=== PATIENT | male | born 1990 | race Caucasian/White ===

== ENCOUNTER 2018-07-26 14:20 | Emergency (ER) | payer OTHER ==
[2018-07-26 15:00] VITALS: BP 115/70; PULSE 76; TEMP 97.6; BMI 19.6
--- NOTE | 2018-07-26 16:47 | PDOC ---
Documentation entered by Aniceto Zavala SCRIBE, acting as scribe for Nacho Cleary MD. Nacho Cleary MD: This documentation has been prepared by the Lucas gutierrez Daniel, SCRIBE, under my direction and personally reviewed by me in its entirety. I confirm that the documentation accurately reflects all work, treatment, procedures, and medical decision making performed by me. History of Present Illness - General Chief Complaint: Rash Stated Complaint: RASH,NECK STIFF History Source: Patient Exam Limitations: No Limitations - History of Present Illness Initial Comments: 07/26/18 16:34 The patient is a 28 year old male with no past medical history here today for evaluation of rash. The patient reports that he suddenly became ill last Saturday (07/19/18) after flying to [facility] with fever, headache, and general malaise. He reports going to an ER in [place] where he received a work up and was discharged. He reports that his fever broke on Saturday (07/21/18) and his headache has subsided mildly but is still present. He notes waking up with a stiff neck and a rash all over his body with the biggest rash on his left calf. 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 Patient denies lightheadedness. Denies fever, chills. Denies chest pain, shortness of breath. Denies nausea, vomiting, diarrhea, abdominal pain. Allergies: NKA Past History - Past Medical History Allergies/Adverse Reactions: Allergies Allergy/AdvReac Type Severity Reaction Status Date / Time No Known Allergies Allergy Verified 07/26/18 14:20 Home Medications: Ambulatory Orders Doxycycline Monohydrate [Mondoxyne Nl] 100 mg PO BID #28 capsule 07/26/18 Review of Systems - Review of Systems Able to Perform ROS?: Yes Comments:: 07/26/18 16:34 CONSTITUTIONAL: No reported: Fever, Chills, Diaphoresis, Generalized Weakness, Malaise, Loss of Appetite HEENT: No reported: Rhinorrhea, Nasal Congestion, Throat Pain, Throat Swelling, Difficulty Swallowing, Mouth Swelling, Ear Pain, Eye Pain, Visual Changes CARDIOVASCULAR: No reported: Chest Pain, Syncope, Palpitations, Irregular Heart Rate, Lightheadedness, Peripheral Edema RESPIRATORY: No reported: Cough, Shortness of Breath, SOB with Exertion, Orthopnea, Wheezing , Stridor, Hemoptysis GASTROINTESTINAL: No reported: Abdominal pain, Abdominal Distension, Nausea, Vomiting, Diarrhea, Constipation, Melena, Hematochezia GENITOURINARY: No reported: Dysuria, Frequency, Urgency, Hesitancy, Flank Pain, Genital Pain MUSCULOSKELETAL: No reported: Myalgia, Arthralgia, Joint Swelling, Back pain, Neck Pain SKIN: +diffuse rash. +left calf rash No reported: Itching, Pallor HEMEATOLOGIC/IMMUNOLOGIC: No reported: Easy Bleeding, Easy Bruising, Lymphadenopathy, Frequent infections ENDOCRINE: No reported: Unexplained Weight Gain, Unexplained Weight Loss, Heat Intolerance , Cold Intolerance NEUROLOGIC: No reported: Focal Weakness, Paresthesias, Vertigo, Lightheadedness, Unsteady Gait, Seizure, Mental Status Changes, Incontinence PSYCHIATRIC: No reported: Anxiety, Depression *Physical Exam - Vital Signs Last Vital Signs Temp Pulse Resp BP Pulse Ox 97.6 F 76 20 115/70 100 07/26/18 14:20 07/26/18 14:20 07/26/18 14:20 07/26/18 14:20 07/26/18 14:20 - Physical Exam Comments: 07/26/18 16:36 GENERAL: The patient is awake, alert, and fully oriented, Nontoxic - in no acute distress. HEAD: Normocephalic, atraumatic. EYES: extraocular movements intact, sclera anicteric, conjunctiva clear. ENT: Normal voice, Moist mucous membranes. NECK: Normal range of motion, supple, neg brudzinsky and kernigs LUNGS: Breath sounds equal, clear to auscultation bilaterally. No wheezes, no rhonchi, no rales. HEART: Regular rate and rhythm, normal S1 and S2 without murmur, rub or gallop. ABDOMEN: Soft, nontender, No guarding, no rebound. . No CVA tenderness EXTREMITIES: Normal range of motion, no edema. No clubbing or cyanosis. No cords, erythema, or tenderness. NEUROLOGICAL: No facial assymetry, Normal speech, PSYCH: Normal mood, normal affect. SKIN: Warm, Dry, normal turgor, target rasn on the L calf Heart Score/ECG Review - ECG Impressions Comment:: 07/26/18 18:11 Twelve-lead EKG was performed and reviewed by me. There is normal sinus rhythm with a normal rate. rate of 60 The axis is normal. The intervals are normal. There is normal R wave progression There are no ST or T wave abnormalities. Impression: Normal twelve-lead EKG ED Treatment Course - LABORATORY CBC & Chemistry Diagram: 07/26/18 16:49 07/26/18 16:49 Medical Decision Making - Medical Decision Making 07/26/18 16:29 28y M no pmhx presents with complaint of rash, pt had a recent history of fever and headache and was worked up in an ED in [place], was told that if he has a rash or stiff neck he should come back. pt notse the fever/heaache resolved 4 days ago, but noticed a rash on his leg and ahd alittle stiffness of neck so come to the ED for evaluation. 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 I answered all of the patient's questions. The patient was satisfied with the care received and felt comfortable with the discharge plan and treatment plan. The patient will call their primary care physician within 24 hours to arrange follow-up and will return to the Emergency Department with any new, persistent or worsening symptoms. *DC/Admit/Observation/Transfer Diagnosis at time of Disposition: Rash - Discharge Dispostion Disposition: HOME Condition at time of disposition: Improved Decision to Admit order: No - Prescriptions Prescriptions: Doxycycline Monohydrate [Mondoxyne Nl] 100 mg PO BID #28 capsule - Referrals Referrals: [facility] [place] [Provider Group] - Patient Instructions Printed Discharge Instructions: Lyme Disease Test, DI for Lyme Disease, DI for Rash Additional Instructions: Return to the emergency department immediately with ANY new, persistent or worsening symptoms. Your rash and other recent symptoms may be due to Lyme disease - we have sent some tests to the lab and the results are still pending. Due to your risk factors and the appearance of the rash I will start you on doxycycline for the Lyme disease. If the tests are positive we will call you notified You MUST call and follow up with your doctor in 4-5 days for further evaluation of your symptoms. Results were discussed with you. Please make sure your doctor reviews the results of your emergency evaluation. Print Language: MOROCCAN - Post Discharge Activity
[2018-07-26 17:29] LABS: BASO % 0.6 % (0-2.0); HEMATOCRIT 40.3 % (35.4-49); HEMOGLOBIN 13.2 GM/dl (11.7-16.9); MCH 30.1 pg (25.7-33.7); MCHC 32.8 g/dl (32.0-35.9); MEAN CELL VOLUME 91.6 fl (80-96); MEAN PLT VOLUME 7.7 fl (7.5-11.1); NEUT % 76.4 % (42.8-82.8); PLATELET COUNT 272 K/MM3 (134-434); RDW 11.7 % (11.9-15.9); WHITE BLOOD COUNT 7.3 K/mm3 (4.0-10.8)
[2018-07-26] MEDS ORDERED: DOXYCYCLINE HYCLATE 100 MG CAPSULE PO ONE ×2 (19:10→19:13)
[2018-07-26 19:29] LABS: BILIRUBIN,TOTAL 0.6 mg/dL (0.2-1); BLOOD UREA NITROGEN 12.8 mg/dL (7-18); CALCIUM 9.2 mg/dL (8.5-10.1); CREATININE 0.8 mg/dL (0.55-1.3); POTASSIUM 4.3 mmol/L (3.5-5.1); TOT PROT 7.7 g/dl (6.4-8.2)
--- NOTE | 2018-07-26 19:57 | PDOC ---
*Physical Exam - Vital Signs Last Vital Signs Temp Pulse Resp BP Pulse Ox 97.6 F 76 20 115/70 100 07/26/18 14:20 07/26/18 14:20 07/26/18 14:20 07/26/18 14:20 07/26/18 14:20 ED Treatment Course - LABORATORY CBC & Chemistry Diagram: 07/26/18 16:49 07/26/18 16:49 - ADDITIONAL ORDERS Additional order review: Laboratory Results 07/26/18 16:49 Sodium 138 Potassium 4.3 Chloride 103 Carbon Dioxide 26 Anion Gap 10 BUN 12.8 Creatinine 0.8 Est GFR (CKD-EPI)AfAm 140.90 Est GFR (CKD-EPI)NonAf 121.57 Random Glucose 78 Calcium 9.2 Total Bilirubin 0.6 AST 85 H ALT 128 H Alkaline Phosphatase 82 Total Protein 7.7 Albumin 4.0 07/26/18 16:49 RBC 4.40 MCV 91.6 MCHC 32.8 RDW 11.7 L MPV 7.7 Neutrophils % 76.4 Lymphocytes % 14.0 Monocytes % 6.0 Eosinophils % 3.0 Basophils % 0.6 - Medications Given in the ED: ED Medications Discontinued Medications Generic Name Dose Route Start Last Admin Trade Name Freq PRN Reason Stop Dose Admin Doxycycline Hyclate 100 mg 07/26/18 19:10 07/26/18 19:14 Vibramycin - PO 07/26/18 19:11 100 mg ONCE ONE Administration Progress Note - Progress Note Progress Note: Care of this patient received from Chemistry profile notable only for mild elevation of transaminases. CBC essentially normal and HIV negative Laboratory evaluation results and discharge instructions reviewed with the patient. Importance of arranging follow-up with internal medicine/family practice doctor at [facility] was discussed with the patient. Instructions for doxycycline course and precautions regarding avoidance of dairy products taken concurrently with medication/photosensitivity/possible gastrointestinal upset reviewed with the patient. *DC/Admit/Observation/Transfer Diagnosis at time of Disposition: Rash - Discharge Dispostion Disposition: HOME Condition at time of disposition: Improved - Prescriptions Prescriptions: Doxycycline Monohydrate [Mondoxyne Nl] 100 mg PO BID #28 capsule - Referrals Referrals: [facility] [place] [facility] [place] [Provider Group] - Patient Instructions Printed Discharge Instructions: Lyme Disease Test, DI for Lyme Disease, DI for Rash Additional Instructions: Return to the emergency department immediately with ANY new, persistent or worsening symptoms. Your rash and other recent symptoms may be due to Lyme disease - we have sent some tests to the lab and the results are still pending. Due to your risk factors and the appearance of the rash I will start you on doxycycline for the Lyme disease. If the tests are positive we will call you notified You MUST call and follow up with your doctor in 4-5 days for further evaluation of your symptoms. Results were discussed with you. Please make sure your doctor reviews the results of your emergency evaluation. Print Language: UKRAINIAN - Post Discharge Activity
--- NOTE | 2018-07-27 08:28 | EKG ---
Test Reason : Blood Pressure : / mmHG Vent. Rate : 060 BPM Atrial Rate : 060 BPM P-R Int : 172 ms QRS Dur : 088 ms QT Int : 410 ms P-R-T Axes : 047 067 032 degrees QTc Int : 410 ms NORMAL SINUS RHYTHM WITH SINUS ARRHYTHMIA NORMAL ECG NO PREVIOUS ECGS AVAILABLE Confirmed by ALIVIA GARCIA, SAVANAH ([id number]) on 07/27/2018 8:27:52 AM Referred By: ANTONIO Confirmed By:SAVANAH BUNCH MD
[2018-07-29 14:17] LABS: IgG Ab 23 kDa Band Absent (.); IgG Ab 28 kDa Band Absent (.)
== END 2018-07-26 20:08 | disposition home or self-care (01) ==
LOC: FER 14:20
DX: R21 Rash and other nonspecific skin eruption (principal)
CPT/HCPCS: 36415; 80053; 85025; 86618; 87389; 93005; 99282-25